=== PATIENT | male | born 1990 | race Two or more races ===

== ENCOUNTER 2018-01-24 21:53 | Emergency (ER) | payer SELFPAY ==
[2018-01-25] MEDS ORDERED: KETOROLAC TROMETHAMINE INJ/PF 30 MG/1 ML SDV IM ONE (00:40)
[2018-01-25] MEDS ORDERED: PENICILLIN V POTASSIUM 500 MG TABLET PO ONE (00:40)
--- NOTE | 2018-01-25 00:46 | ER Document Report ---
ED Oral Problem - General Chief Complaint: Toothache Stated Complaint: TOOTHACHE Time Seen by Provider: 01/24/18 23:57 Mode of Arrival: Ambulatory Information source: Patient TRAVEL OUTSIDE OF THE [place] IN LAST 30 DAYS: No - HPI Patient complains to provider of: Toothache Notes: Patient is here with complaints of left upper and lower dental pain. States been present for last 2 days. Patient states that he just moved to [place] from [place] 2 days ago. He does not have a doctor or dentist here. He denies any swelling. No fever. No nausea, vomiting, diarrhea. No difficulty breathing or swallowing. No rash. No injury. States the pain radiates into the left ear. It is worse with eating. Nothing seems to make it better. States that he put some temporary filling in his left lower first molar. Denies any swelling. No other complaints at this time. - Related Data Allergies/Adverse Reactions: No Known Allergies Allergy (Verified 11/10/15 21:16) Past Medical History - Social History Smoking Status: Current Every Day Smoker Chew tobacco use (# tins/day): No Frequency of alcohol use: None Drug Abuse: None Family History: Reviewed & Not Pertinent Patient has suicidal ideation: No Patient has homicidal ideation: No Renal/ Medical History: Denies: Hx Peritoneal Dialysis Review of Systems - Review of Systems -: Yes All other systems reviewed and negative Physical Exam - Vital signs Vitals: Temp Pulse Resp BP Pulse Ox 98.4 F 84 16 124/81 97 01/24/18 22:34 01/24/18 22:34 01/24/18 22:34 01/24/18 22:34 01/24/18 22:34 - Notes Notes: GENERAL: alert, cooperative, nontoxic, no distress. HEAD: normocephalic, atraumatic EYES: conjunctiva pink without discharge, no external redness or swelling. EARS: no external swelling, no external redness NOSE: atraumatic, no external swelling MOUTH/THROAT: mucous membranes moist and pink. Large cavity to the left lower first molar with temporary filling noted in place. No gum swelling. No sublingual swelling or induration. No obvious swelling to the left upper gums. No abscess. No facial swelling. No trismus or drooling. Airway is patent. Voice is normal. NECK: soft, supple, full range of motion, no meningismus. CHEST: no distress, lungs clear and equal throughout. No wheezing, rales, rhonchi. CARDIAC: regular rate and rhythm, no murmur, normal capillary refill, normal pulses. BACK: full range of motion, no CVA tenderness. EXTREMITIES: full range of motion of all extremities. No redness, no swelling. NEURO: alert and oriented 3, no focal deficits, full range of motion of all extremities. PYSCH: appropriate mood, affect. Patient is cooperative. SKIN: pink, warm, dry, no rash. Course - Re-evaluation Re-evalutation: 01/25/18 00:43 Patient is nontoxic-appearing with stable vitals. The patient is here with complaints of left upper and lower dental pain for the last 2 days. He just moved here from [place] 2 days ago. No fever. He is no obvious swelling. No sign of abscess or infection. No sign of Chato's angina. He does have a large cavity in the left lower first molar which has a temporary filling in place. No drainage. Patient will be given a dose of Pen-Vee K a shot of Toradol here in emergency department. He will be discharged home with Naprosyn and Pen-Vee K as well as dental referrals. Is instructed to follow-up with a dentist at the next available appointment, sooner for worsening pain, fever, swelling, numbness, tingling, weakness, any further concerns. The patient is noted to have elevated blood pressure during today's emergency department visit. The patient was informed of this finding. The patient was instructed that this may be related to pre-hypertension and requires further evaluation with a primary care provider. The patient has no hypertensive symptoms at this time. The patient's emergency department workup and current diagnosis were explained to the patient and or family. Follow-up instructions were provided. Medications if prescribed were discussed. Instructions for when to return to the emergency department including specific worrisome symptoms were discussed with the patient and/or family. - Vital Signs Vital signs: Temp Pulse Resp BP Pulse Ox 98.4 F 84 16 124/81 97 01/24/18 22:34 01/24/18 22:34 01/24/18 22:34 01/24/18 22:34 01/24/18 22:34 Discharge - Discharge Clinical Impression: Pain due to dental caries Condition: Stable Disposition: HOME, SELF-CARE Instructions: [facility], Toothache ([facility]), Penicillin V K ([facility]), Dentist Additional Instructions: Take medications as prescribed. Follow-up with a dentist at the next available appointment. Follow-up sooner for worsening pain, fever, swelling, persistent vomiting, or for any further concerns. Your blood pressure was elevated during today's visit. Have this rechecked with your doctor. Prescriptions: Naproxen [Naprosyn] 500 mg PO BID #20 tablet Penicillin V Potassium [Penicillin Vk 500 mg Tablet] 500 mg PO BID #20 tablet Forms: Elevated Blood Pressure, Smoking Cessation Education Referrals: SIDDHARTH DOE MD [Primary Care Provider] - Follow up as needed [facility] [Provider Group] - Follow up as needed [facility] [Provider Group] - Follow up as needed
[2018-01-25 01:08] VITALS: BP 123/72
== END 2018-01-25 01:08 | disposition home or self-care (01) ==
LOC: ER 21:53
DX: K02.9 Dental caries, unspecified (principal); R03.0 Elevated blood-pressure reading, without diagnosis of hypertension; F17.200 Nicotine dependence, unspecified, uncomplicated
CPT/HCPCS: 99282; J1885